=== PATIENT | male | born 1960 | race Caucasian/White ===

== ENCOUNTER 2021-04-27 00:51 | Inpatient (IN) | payer MEDICARE, MEDICAID ==
[~2021-04-27] VITALS: Ht 165.1 cm; Wt 65.8 kg
[2021-04-27] MEDS ORDERED: METHYLPREDNISOLONE SOD SUCC 125 MG/2 ML VIAL IV STA (01:10)
[2021-04-27] MEDS ORDERED: MAGNESIUM 2 G PREMIX 50 ML IV ONE (01:15)
[2021-04-27] MEDS ORDERED: ALBUTEROL (0.083%) 2.5MG/3ML NEB HHN SCH (01:30)
[2021-04-27 01:57] LABS: HEMATOCRIT. 40.4 % (42.0-52.0); HEMOGLOBIN. 12.8 g/dL (14.0-18.0); MEAN CORPUSCULAR HEMOGLOBIN 28.5 pg (28.0-32.0); MEAN CORPUSCULAR VOLUME 90.4 fL (80.0-94.0); MEAN PLATELET VOLUME 8.7 fl (7.4-10.4); PLATELET 175 x1000/uL (130-400); RED BLOOD CELL COUNT 4.47 mill/uL (4.7-6.1); RED CELL DISTRIBUTION WIDTH 15.2 % (11.6-14.6)
[2021-04-27] MEDS ORDERED: CEFTRIAXONE 1 G PREMIX 50 ML IV ONE (02:00)
[2021-04-27] MEDS ORDERED: AZITHROMYCIN 500 MG in DEXT 5% WATER 250 ML IV SCH (02:00)
[2021-04-27 02:06] LABS: CHLORIDE 101 mEq/L (98-107)
[2021-04-27 03:54] LABS: PLATELET ESTIMATE NORMAL
[2021-04-27] MEDS ORDERED: IOHEXOL-350 100 ML BOTTLE ONE (06:36)
[2021-04-27 07:11] LABS: HEPATITIS B SURFACE ANTIGEN NEGATIVE
[2021-04-27] MEDS ORDERED: MAGNESIUM/ALUMINUM HYDROXIDE/SIMETHICONE 30ML UDC PO PRN (08:30)
[2021-04-27] MEDS ORDERED: DOCUSATE SODIUM 100MG CAPSULE PO PRN (08:30)
[2021-04-27] MEDS ORDERED: CLONIDINE 0.1MG TABLET PO PRN (08:30)
[2021-04-27] MEDS ORDERED: ONDANSETRON HCL 4MG/2ML INJ IV PRN (08:30)
[2021-04-27 10:00] VITALS: BP 131/81
[2021-04-27 12:00] VITALS: BP 151/73
[2021-04-27] MEDS: ACETAMINOPHEN 325MG TABLET PO PRN (12:03)
[2021-04-27] MEDS: HEPARIN 5000 UNITS/ML VIAL SUBCUT SCH ×3 (12:03→21:46)
[2021-04-27] MEDS: DEXAMETHASONE 10 MG/ML VIAL IV SCH (12:04)
[2021-04-27 18:00] VITALS: BP 159/76
[2021-04-27 22:00] VITALS: BP 151/80
[2021-04-28] MEDS ORDERED: AZITHROMYCIN 500 MG in DEXT 5% WATER 250 ML IV SCH (02:00)
[2021-04-28] MEDS: CEFTRIAXONE 1,000 MG in DEXTROSE 5% WATER 50 ML IV SCH (05:43)
[2021-04-28 06:00] VITALS: BP 137/83
[2021-04-28] MEDS ORDERED: CEFTRIAXONE 1 G PREMIX 50 ML IV SCH (06:00)
[2021-04-28] MEDS: HEPARIN 5000 UNITS/ML VIAL SUBCUT SCH ×3 (06:26→21:04)
[2021-04-28 07:49] LABS: HEMATOCRIT. 35.7 % (42.0-52.0); HEMOGLOBIN. 11.8 g/dL (14.0-18.0); MEAN CORPUSCULAR HEMOGLOBIN 29.3 pg (28.0-32.0); MEAN CORPUSCULAR VOLUME 89.1 fL (80.0-94.0); MEAN PLATELET VOLUME 8.6 fl (7.4-10.4); PLATELET 137 x1000/uL (130-400); RED BLOOD CELL COUNT 4.01 mill/uL (4.7-6.1); RED CELL DISTRIBUTION WIDTH 15.2 % (11.6-14.6)
[2021-04-28 08:00] VITALS: BP 145/73
[2021-04-28] MEDS: ACETAMINOPHEN 325MG TABLET PO PRN (08:16)
[2021-04-28] MEDS: DEXAMETHASONE 10 MG/ML VIAL IV SCH (08:16)
[2021-04-28 12:00] VITALS: BP_SYST 139; BP_DIAS 78; BP_DIAS 79
[2021-04-28 12:25] LABS: PLATELET ESTIMATE NORMAL
[2021-04-28 15:58] VITALS: BP 142/64
[2021-04-28 20:00] VITALS: BP 138/69
[2021-04-28] MEDS: AMLODIPINE 5MG TABLET PO SCH (21:04)
[2021-04-29] VITALS: BP 144/76
[2021-04-29 04:00] VITALS: BP 135/67
[2021-04-29] MEDS: CEFTRIAXONE 1,000 MG in DEXTROSE 5% WATER 50 ML IV SCH (06:07)
[2021-04-29] MEDS: HEPARIN 5000 UNITS/ML VIAL SUBCUT SCH ×3 (06:17→21:08)
[2021-04-29 08:00] VITALS: BP 131/58
[2021-04-29] MEDS: AMLODIPINE 5MG TABLET PO SCH (08:43)
[2021-04-29] MEDS: DEXAMETHASONE 10 MG/ML VIAL IV SCH (08:43)
[2021-04-29] MEDS: GUAIFENESIN-DM 200MG-20MG/10ML UDC PO PRN (10:43)
[2021-04-29 12:00] VITALS: BP 132/75
[2021-04-29 16:00] VITALS: BP 138/71
[2021-04-29 20:00] VITALS: BP 137/72
[2021-04-29] MEDS: NICOTINE 21MG PATCH TD SCH (21:08)
[2021-04-30] VITALS: BP 145/70
[2021-04-30 04:00] VITALS: BP 141/71
[2021-04-30] MEDS ORDERED: LIDOCAINE HCL/PF 1% 2ML VIAL ONE (05:00)
[2021-04-30] MEDS: HEPARIN 5000 UNITS/ML VIAL SUBCUT SCH ×3 (06:13→21:32)
[2021-04-30] MEDS: CEFTRIAXONE 1,000 MG in DEXTROSE 5% WATER 50 ML IV SCH (06:13)
[2021-04-30 06:50] LABS: BG BASE EXCESS 1.6 mmol/L (-2.0-2.0); BG CARBOXYHEMOGLOBIN 0.5 % (0.5-1.5); BG DEOXYHEMOGLOBIN 5.9 % (0.0-5.0); BG HCO3 ACT 26.5 mmol/L (22.0-26.0); BG METHEMOGLOBIN 0.3 % (0.0-1.5); BG OXYGEN SATURATION 94.1 % (92.0-98.5); BG OXYHEMOGLOBIN 93.3 % (94.0-97.0); BG PCO2 42.9 mmHg (35.0-45.0); BG PH 7.409 (7.350-7.450); BG PO2 77.2 mmHg (75.0-100.0); BG SAMPLE SITE RIGHT BRACHIAL; BG TOTAL HEMOGLOBIN 11.7 g/dL (12.0-18.0); BG VENT MODE VAPOTHERM
[2021-04-30 08:00] VITALS: BP 142/55
[2021-04-30 08:18] LABS: PHOSPHORUS 5.4 mg/dL (2.5-4.9)
[2021-04-30 08:20] LABS: HEMATOCRIT. 31.7 % (42.0-52.0); HEMOGLOBIN. 10.7 g/dL (14.0-18.0); MEAN CORPUSCULAR HEMOGLOBIN 29.5 pg (28.0-32.0); MEAN CORPUSCULAR VOLUME 87.6 fL (80.0-94.0); MEAN PLATELET VOLUME 8.5 fl (7.4-10.4); PLATELET 164 x1000/uL (130-400); RED BLOOD CELL COUNT 3.62 mill/uL (4.7-6.1); RED CELL DISTRIBUTION WIDTH 14.8 % (11.6-14.6)
[2021-04-30] MEDS: AMLODIPINE 5MG TABLET PO SCH (08:51)
[2021-04-30] MEDS: DEXAMETHASONE 10 MG/ML VIAL IV SCH (08:51)
[2021-04-30] MEDS: NICOTINE 21MG PATCH TD SCH (08:51)
[2021-04-30] MEDS: GUAIFENESIN-DM 200MG-20MG/10ML UDC PO PRN ×2 (08:52→18:15)
[2021-04-30 12:23] VITALS: BP 143/68
[2021-04-30 12:57] LABS: NUCLEATED RED BLOOD CELLS 1 /100 WBC
[2021-04-30 12:58] LABS: PLATELET ESTIMATE NORMAL
[2021-04-30 16:00] VITALS: BP 142/78
[2021-04-30 20:00] VITALS: BP 146/81
[2021-04-30] MEDS: FAMOTIDINE 20MG TABLET PO SCH (21:32)
[2021-05-01] VITALS (7 sets, daily range): BP systolic 143–153; BP diastolic 66–75
[2021-05-01] MEDS: CEFTRIAXONE 1,000 MG in DEXTROSE 5% WATER 50 ML IV SCH (06:06)
[2021-05-01] MEDS: HEPARIN 5000 UNITS/ML VIAL SUBCUT SCH ×3 (06:06→21:48)
[2021-05-01 08:03] LABS: HEMATOCRIT. 33.3 % (42.0-52.0); HEMOGLOBIN. 10.9 g/dL (14.0-18.0); MEAN CORPUSCULAR HEMOGLOBIN 29.2 pg (28.0-32.0); MEAN CORPUSCULAR VOLUME 89.2 fL (80.0-94.0); MEAN PLATELET VOLUME 8.8 fl (7.4-10.4); PLATELET 214 x1000/uL (130-400); RED BLOOD CELL COUNT 3.73 mill/uL (4.7-6.1); RED CELL DISTRIBUTION WIDTH 14.9 % (11.6-14.6)
[2021-05-01] MEDS: GUAIFENESIN-DM 200MG-20MG/10ML UDC PO PRN ×4 (09:36→21:48)
[2021-05-01] MEDS: AMLODIPINE 5MG TABLET PO SCH (09:36)
[2021-05-01] MEDS: NICOTINE 21MG PATCH TD SCH (09:45)
[2021-05-01] MEDS: DEXAMETHASONE 10 MG/ML VIAL IV SCH (09:50)
[2021-05-01 13:15] LABS: PLATELET ESTIMATE NORMAL
[2021-05-01] MEDS: BENZONATATE 100MG CAPSULE PO PRN (18:03)
[2021-05-01] MEDS: ACETAMINOPHEN 325MG TABLET PO PRN (18:03)
[2021-05-01] MEDS: FAMOTIDINE 20MG TABLET PO SCH (21:47)
[2021-05-02 00:51] VITALS: BP 132/77
[2021-05-02] MEDS: BENZONATATE 100MG CAPSULE PO PRN (01:11)
[2021-05-02] MEDS: ACETAMINOPHEN 325MG TABLET PO PRN (01:11)
[2021-05-02 04:00] VITALS: BP 149/74
[2021-05-02] MEDS: GUAIFENESIN-DM 200MG-20MG/10ML UDC PO PRN (04:03)
[2021-05-02] MEDS: HEPARIN 5000 UNITS/ML VIAL SUBCUT SCH (05:27)
[2021-05-02] MEDS: CEFTRIAXONE 1,000 MG in DEXTROSE 5% WATER 50 ML IV SCH (05:27)
[2021-05-02 08:00] VITALS: BP 91/53
[2021-05-02] MEDS: DEXAMETHASONE 10 MG/ML VIAL IV SCH (09:00)
[2021-05-02] MEDS: AMLODIPINE 5MG TABLET PO SCH (09:00)
[2021-05-02] MEDS: NICOTINE 21MG PATCH TD SCH (09:30)
== END 2021-05-02 11:35 | disposition left against medical advice (07) | DRG 871 ==
LOC: ER 00:51 → MICUSO 02:40 → 7WST 09:41
PROVIDERS: ADMIT Family Medicine Adult Medicine; ATTEND Internal Medicine
PROC: 5A0945A Assistance with Respiratory Ventilation, 24-96 Consecutive Hours, High Flow/Velocity Cannula (ICD-10-PCS; 2021-04-27)
PROC: 5A1D70Z Performance of Urinary Filtration, Intermittent, Less than 6 Hours Per Day (ICD-10-PCS; principal; 2021-04-28)
PROC: 5A1D70Z Performance of Urinary Filtration, Intermittent, Less than 6 Hours Per Day (ICD-10-PCS; 2021-04-29)
PROC: 5A1D70Z Performance of Urinary Filtration, Intermittent, Less than 6 Hours Per Day (ICD-10-PCS; 2021-05-02)
DX: A41.89 Other specified sepsis (principal); J96.01 Acute respiratory failure with hypoxia; N18.6 End stage renal disease; E43 Unspecified severe protein-calorie malnutrition; J12.82 Pneumonia due to coronavirus disease 2019; U07.1 COVID-19; I13.2 Hypertensive heart and chronic kidney disease with heart failure and with stage 5 chronic kidney disease, or end stage renal disease; C85.90 Non-Hodgkin lymphoma, unspecified, unspecified site; Z53.29 Procedure and treatment not carried out because of patient's decision for other reasons; R65.20 Severe sepsis without septic shock; I50.9 Heart failure, unspecified; F17.210 Nicotine dependence, cigarettes, uncomplicated; D64.9 Anemia, unspecified; R73.9 Hyperglycemia, unspecified; R13.10 Dysphagia, unspecified; Z99.2 Dependence on renal dialysis; Z91.19 Patient's noncompliance with other medical treatment and regimen; Z85.6 Personal history of leukemia; Z68.24 Body mass index [BMI] 24.0-24.9, adult; Z92.21 Personal history of antineoplastic chemotherapy
CPT/HCPCS: 36415; 36600; 71045; 71275; 80048; 80053; 82375; 82805; 83605; 83880; 84100; 84484; 85025; 86705; 86709; 86803; 87340; 87426; 93005; 99291; J0456; J0696; J1100; J1644; J2930; J3475; J3490; J7040; J7060; Q9967